=== PATIENT | male | born 1950 | race Hispanic/Latino ===

== ENCOUNTER 2019-02-03 22:44 | Emergency (ER) | payer OTHER ==
[2019-02-03] MEDS ORDERED: FOLIC ACID 5 MG/ML VIAL ONE (23:37)
[2019-02-03] MEDS ORDERED: MULTIVITAMINS 10 ML VIAL (INJ) IV ONE (23:37)
[2019-02-03] MEDS ORDERED: THIAMINE 200 MG/2 ML INJ ONE (23:37)
[2019-02-03] MEDS ORDERED: NA CHLORIDE 0.9% 1,000 ML ONE (23:38)
--- NOTE | 2019-02-04 03:40 | ER ---
Nurse's Notes [facility] Name: Jb Welch Age: 68 yrs Sex: Male : 1950 Arrival Date: 02/03/2019 Time: 22:47 Bed 16 Private MD: Fer Wellington E Diagnosis: Weakness;Near Syncope Presentation: 02/03 22:56 Presenting complaint: Patient states: while mowing generalized fatigue. pt denies LOC, ak1 stated he could not move his arms or legs at 1930. pt A\T\OX4 in triage with full ROM and steady gait. Transition of care: patient was not received from another setting of care. Onset of symptoms was February 03, 2019. Risk Assessment: Do you want to hurt yourself or someone else? Patient reports no desire to harm self or others. Initial Sepsis Screen: Does the patient meet any 2 criteria? No. Patient's initial sepsis screen is negative. Does the patient have a suspected source of infection? No. Patient's initial sepsis screen is negative. Care prior to arrival: None. 22:56 Method Of Arrival: Ambulatory ak1 22:56 Acuity: JOEY 3 ak1 Triage Assessment: 22:57 General: Appears in no apparent distress. Behavior is calm, cooperative. Neuro: Level ak1 of Consciousness is awake, alert, obeys commands, Oriented to person, place, time, situation, Biofuels Technology Manager are equal bilaterally Moves all extremities. Gait is steady, Speech is normal, Facial symmetry appears normal. Historical: - Allergies: 22:57 No Known Allergies; ak1 - PMHx: 22:57 Diabetes - NIDDM; Hyperlipidemia; Hypertension; ak1 - PSHx: 22:57 None; ak1 - Immunization history:: Adult Immunizations unknown. - Social history:: Smoking status: Patient/guardian denies using tobacco. - Ebola Screening: : No symptoms or risks identified at this time. - Family history:: not pertinent. - Hospitalizations: : No recent hospitalization is reported. Screenin:05 Abuse screen: Denies threats or abuse. Nutritional screening: No deficits noted. ea Tuberculosis screening: No symptoms or risk factors identified. Fall Risk None identified. Assessment: 23:04 General: Appears in no apparent distress. Behavior is calm, cooperative, appropriate ea for age. Pain: Denies pain. Neuro: Level of Consciousness is awake, alert, obeys commands, Oriented to person, place, time, situation. Neuro: Biofuels Technology Manager are equal bilaterally Moves all extremities. Gait is steady, Speech is normal, Facial symmetry appears normal. Cardiovascular: Patient's skin is warm and dry. Respiratory: Airway is patent Respiratory effort is even, unlabored, Respiratory pattern is regular, symmetrical. Derm: Skin is pink, warm \T\ dry. Musculoskeletal: Circulation, motion, and sensation intact. 23:20 Reassessment: Blood glucose 69, grape juice given to patient, pt tolerated well. ea 02/04 00:00 Reassessment: Patient and/or family updated on plan of care and expected duration. Pain ea level reassessed. Patient is alert, oriented x 3, equal unlabored respirations, skin warm/dry/pink. 00:01 Cardiovascular: Rhythm is sinus rhythm. ea 01:20 Reassessment: Patient and/or family updated on plan of care and expected duration. Pain ea level reassessed. Patient is alert, oriented x 3, equal unlabored respirations, skin warm/dry/pink. Awaiting for IV fluids to complete. 02:20 Reassessment: Patient and/or family updated on plan of care and expected duration. Pain ea level reassessed. Patient is alert, oriented x 3, equal unlabored respirations, skin warm/dry/pink. Discharge instruction given to patient, verbalized the understanding of instruction, no s/s of pain or discomfort noted at this time. Pt left ED ambulatory accompanied by family Patient states feeling better. Vital Signs: 02/03 22:55 BP 147 / 77; Pulse 80; Resp 18; Temp 98; Pulse Ox 98% on R/A; Weight 92.99 kg (R); ak1 Height 6 ft. 1 in. (185.42 cm) (R); Pain 0/10; 23:30 BP 124 / 78; Pulse 78; Resp 18; Pulse Ox 99% on R/A; ea 02/04 00:00 BP 114 / 71; Pulse 71; Resp 18; Pulse Ox 100% on R/A; ea 01:20 BP 122 / 82; Pulse 69; Resp 18; Pulse Ox 100% ; ea 02:00 BP 138 / 81; Pulse 80; Resp 18; Temp 98; Pulse Ox 99% on R/A; ea 02/03 22:55 Body Mass Index 27.05 (92.99 kg, 185.42 cm) ak1 ED Course: 02/03 22:47 Patient arrived in ED. do 22:48 Fer Wellington MD is Private Physician. do 22:55 Arm band placed on Patient placed in an exam room, on a stretcher, Patient notified of ak1 wait time. 22:57 Triage completed. ak1 23:04 Roxy Riley, RN is Primary Nurse. ea 23:06 Patient has correct armband on for positive identification. Bed in low position. Call ea light in reach. 23:07 Alan Nicolas MD is Attending Physician. rn 23:50 Inserted saline lock: 20 gauge in left antecubital area, using aseptic technique. Blood ea collected. 02/04 02:24 No provider procedures requiring assistance completed. IV discontinued, intact, ea bleeding controlled, No redness/swelling at site. Pressure dressing applied. Administered Medications: 02/03 23:59 Drug: Banana Bag - (NS 0.9% 1000 ml, foLIC Acid 1 mg, Thiamine 100 mg, Multivitamin 1 ea amp) Route: IV; Rate: calculated rate; Site: left antecubital; 02/04 02:28 Follow up: Response: No adverse reaction; IV Status: Completed infusion; IV Intake: ea 900ml Point of Care Testing: Blood Glucose: 02/03 23:13 Blood Glucose: 69 mg/dL; ea Ranges: Intake: 02/04 02:28 IV: 900ml; Total: 900ml. ea Outcome: 00:33 Discharge ordered by . rn 02:24 Discharged to home ambulatory, with family. ea 02:24 Condition: improved 02:24 Discharge instructions given to patient, Instructed on discharge instructions, follow up and referral plans. Demonstrated understanding of instructions, follow-up care. 02:28 Patient left the ED. ea Signatures: Alan Nicolas MD MD rn Krenek, Amber, RN RN ak1 Nery Navarro Elena, RN RN ea
--- NOTE | 2019-02-04 03:40 | EDPHYS ---
Physician Documentation [facility] Name: Jb Welch Age: 68 yrs Sex: Male : 1950 Arrival Date: 02/03/2019 Time: 22:47 Bed 16 Private MD: Fer Wellington E ED Physician Alan Nicolas HPI: 02/04 00:07 This 68 yrs old Male presents to ER via Ambulatory with complaints of Near rn Syncope, General Weakness. 00:07 The patient has experienced near-syncope. Onset: The symptoms/episode began/occurred rn today. Duration: The patient has had multiple episodes. Associated injury: The patient did not suffer any apparent associated injury. Current symptoms: Currently, the patient is not experiencing any symptoms. The patient has not experienced similar symptoms in the past. Reports was drinking beer, decided to cut grass, reports whole body got weak, unable to get off of ground or stand, reports lasted less than 1 minute, happened again after 10-15 minutes, then resolved, went inside to drink more beer and whiskey. No syncope. No assoc headache/focal neuro problem/chest pain/sob/abd pain/tingling. Reports feels totally fine right now and did not want to come. Denies drinking any water today.. Historical: - Allergies: 02/03 22:57 No Known Allergies; ak1 - PMHx: 22:57 Diabetes - NIDDM; Hyperlipidemia; Hypertension; ak1 - PSHx: 22:57 None; ak1 - Immunization history:: Adult Immunizations unknown. - Social history:: Smoking status: Patient/guardian denies using tobacco. - Ebola Screening: : No symptoms or risks identified at this time. - Family history:: not pertinent. - Hospitalizations: : No recent hospitalization is reported. ROS: 02/04 00:07 Constitutional: Negative for fever, chills, and weight loss, Eyes: Negative for injury, rn pain, redness, and discharge, Neck: Negative for injury, pain, and swelling, Cardiovascular: Negative for chest pain, palpitations, and edema, Respiratory: Negative for shortness of breath, cough, wheezing, and pleuritic chest pain, Abdomen/GI: Negative for abdominal pain, nausea, vomiting, diarrhea, and constipation, Back: Negative for injury and pain, MS/Extremity: Negative for injury and deformity, Skin: Negative for injury, rash, and discoloration, Neuro: Negative for headache, numbness, tingling, and seizure. Exam: 00:07 Constitutional: This is a well developed, well nourished patient who is awake, alert, rn and in no acute distress. Smiling and joking. Head/Face: Normocephalic, atraumatic. Eyes: Pupils equal round and reactive to light, extra-ocular motions intact. Lids and lashes normal. Conjunctiva and sclera are non-icteric and not injected. Cornea within normal limits. Periorbital areas with no swelling, redness, or edema. ENT: dry MM Neck: Trachea midline, no thyromegaly or masses palpated, and no cervical lymphadenopathy. Supple, full range of motion without nuchal rigidity, or vertebral point tenderness. No Meningismus. Cardiovascular: Regular rate and rhythm with a normal S1 and S2. No gallops, murmurs, or rubs. Normal PMI, no JVD. No pulse deficits. Respiratory: Lungs have equal breath sounds bilaterally, clear to auscultation and percussion. No rales, rhonchi or wheezes noted. No increased work of breathing, no retractions or nasal flaring. Abdomen/GI: Soft, non-tender, with normal bowel sounds. No distension or tympany. No guarding or rebound. No evidence of tenderness throughout. Skin: Warm, dry MS/ Extremity: Pulses equal, no cyanosis. Neurovascular intact. Full, normal range of motion. Equal circumference. Neuro: Awake and alert, GCS 15, oriented to person, place, time, and situation. Cranial nerves II-XII grossly intact. Motor strength 5/5 in all extremities. Sensory grossly intact. Cerebellar exam normal. Vital Signs: 02/03 22:55 BP 147 / 77; Pulse 80; Resp 18; Temp 98; Pulse Ox 98% on R/A; Weight 92.99 kg (R); ak1 Height 6 ft. 1 in. (185.42 cm) (R); Pain 0/10; 23:30 BP 124 / 78; Pulse 78; Resp 18; Pulse Ox 99% on R/A; ea 02/04 00:00 BP 114 / 71; Pulse 71; Resp 18; Pulse Ox 100% on R/A; ea 01:20 BP 122 / 82; Pulse 69; Resp 18; Pulse Ox 100% ; ea 02:00 BP 138 / 81; Pulse 80; Resp 18; Temp 98; Pulse Ox 99% on R/A; ea 02/03 22:55 Body Mass Index 27.05 (92.99 kg, 185.42 cm) ak1 MDM: 02/03 23:07 Patient medically screened. rn 02/04 00:32 Differential Diagnosis: cardiac arrhythmia, vasovagal episode, near syncope, ETOH rn effects, dehydration. Data reviewed: vital signs, nurses notes, lab test result(s), EKG, and as a result, I will continue to observe the patient. Counseling: I had a detailed discussion with the patient and/or guardian regarding: the historical points, exam findings, and any diagnostic results supporting the discharge/admit diagnosis, lab results, the need for outpatient follow up, to return to the emergency department if symptoms worsen or persist or if there are any questions or concerns that arise at home. Response to treatment: the patient's condition has returned to base line, the patient is now symptom free, and as a result, I will discharge patient. Special discussion: I discussed with the patient/guardian in detail that at this point there is no indication for admission to the hospital. It is understood, however, that if the symptoms persist or worsen the patient needs to return immediately for re-evaluation. 02/03 23:17 Order name: CBC with Diff rn 02/03 23:17 Order name: Basic Metabolic Panel rn 02/03 23:17 Order name: Troponin (emerg Dept Use Only) rn 02/03 23:17 Order name: ETOH Level rn 02/03 23:18 Order name: Magnesium rn 02/03 23:18 Order name: CBC with Automated Diff EDMS 02/03 23:17 Order name: IV Start; Complete Time: 23:59 rn 02/03 23:17 Order name: EKG; Complete Time: 23:18 rn 02/03 23:17 Order name: EKG - Nurse/Tech; Complete Time: 23:59 rn Administered Medications: 02/03 23:59 Drug: Banana Bag - (NS 0.9% 1000 ml, foLIC Acid 1 mg, Thiamine 100 mg, Multivitamin 1 ea amp) Route: IV; Rate: calculated rate; Site: left antecubital; 02/04 02:28 Follow up: Response: No adverse reaction; IV Status: Completed infusion; IV Intake: ea 900ml Point of Care Testing: Blood Glucose: 02/03 23:13 Blood Glucose: 69 mg/dL; ea Ranges: Critical Glucose Levels:Adult <50 mg/dl or >400 mg/dl <40 mg/dl or >180 mg/dl Disposition: 02/04/19 00:33 Discharged to Home. Impression: Weakness, Near Syncope. - Condition is Stable. - Discharge Instructions: Near-Syncope, Weakness. - Medication Reconciliation Form, Thank You Letter, Antibiotic Education, Prescription Opioid Use form. - Follow up: Private Physician; When: As needed; Reason: Recheck today's complaints, Re-evaluation by your physician. - Problem is new. - Symptoms have improved. Signatures: Dispatcher [employer] EDMS Alan Nicolas MD MD rn Krenek, Amber RN RN ak1 Roxy Riley RN RN ea Corrections: (The following items were deleted from the chart) 02/04 02:28 00:33 02/04/2019 00:33 Discharged to Home. Impression: Weakness; Near Syncope. ea Condition is Stable. Forms are Medication Reconciliation Form, Thank You Letter, Antibiotic Education, Prescription Opioid Use. Follow up: Private Physician; When: As needed; Reason: Recheck today's complaints, Re-evaluation by your physician. Problem is new. Symptoms have improved. rn
[2019-02-04 04:03] LABS: BUN Blood Urea Nitrogen 28 mg/dL (7-18); Bicarbonate 23 mmol/L (21-32); Glucose Level 82 mg/dL (74-106); Magnesium 2.2 mg/dL (1.8-2.4); Potassium 3.7 mmol/L (3.5-5.1); Sodium Level 145 mmol/L (136-145); Troponin (Emerg Dept Use Only) < 0.02 ng/mL (0.0-0.045)
[2019-02-04 04:07] LABS: Absolute Lymphocytes (CBC) 1.2 K/uL (0.7-4.9); Basophils % 0.8 % (0-1.3); Eosinophils % 0.9 % (0-4.4); Lymphocytes % 17.2 % (15.3-44.8); MPV 8.6 fL (7.6-11.3); Monocytes % 7.2 % (3.3-12.3); RBC Red Blood Cell Count 4.22 M/uL (4.33-5.43)
--- NOTE | 2019-02-04 09:56 | EKG ---
Test Date: 2019-02-03 Test Time: 23:31:28 Sales Rep: EDNA MEASUREMENT RESULTS: Intervals: Rate: 70 DC: 226 QRSD: 114 QT: 414 QTc: 447 [place]: P: 51 DC: 226 QRS: -27 T: 42 INTERPRETIVE STATEMENTS: Sinus rhythm with 1st degree AV block Otherwise normal ECG Compared to ECG 06/19/2016 13:48:15 First degree AV block now present Electronically Signed On 02-04-19 09:55:06 CDT by Reza Lopez
== END 2019-02-04 02:28 | disposition home or self-care (01) ==
LOC: ER 22:44
DX: R53.1 Weakness (principal); I10 Essential (primary) hypertension
CPT/HCPCS: 96365; 93005; 85025; 80048; 36415; 80320; 83735; 82962; 84484; 99284; 96366; J3411; J7030

== ENCOUNTER 2020-01-25 07:45 | Day surgery (SDC) | payer OTHER ==
[2020-01-22 12:48] LABS: Basophils % 0.6 % (0-1.3); Hematocrit 44.3 % (39.6-49.0); Lymphocytes % 18.4 % (15.3-44.8); MPV 8.6 fL (7.6-11.3); RBC Red Blood Cell Count 4.45 M/uL (4.33-5.43)
[2020-01-22 12:57] LABS: Protime INR 0.94
[2020-01-22 13:00] LABS: Potassium 4.9 mmol/L (3.5-5.1)
--- NOTE | 2020-01-22 13:14 | RAD REPORT ---
EXAM DESCRIPTION: David Fisher And Migel (2 Views)01/22/2020 12:40 pm CLINICAL HISTORY: Preop for cardiac catheterization. Hypertension COMPARISON: 2016 FINDINGS: The lungs appear clear of acute infiltrate. The heart is appears borderline enlarged IMPRESSION: No acute abnormalities displayed
[2020-01-25] MEDS ORDERED: NA CHLORIDE 0.9% 500 ML ONE (08:05)
[2020-01-25] MEDS ORDERED: MIDAZOLAM HCL 2 MG/2 ML INJ ONE ×2 (09:18→09:54)
[2020-01-25] MEDS ORDERED: HEPARIN 5000 UNIT/ML 1 ML VIAL ONE ×2 (09:18→09:19)
[2020-01-25] MEDS ORDERED: ATROPINE SULF 1 MG/10 ML SYR IV ONE (09:19)
[2020-01-25] MEDS ORDERED: NICARDIPINE HCL 25 MG/10 ML IV ONE (09:19)
[2020-01-25] MEDS ORDERED: FENTANYL CITR 100 MCG/2 ML ONE (09:19)
[2020-01-25] MEDS ORDERED: HEPA 1000U/500MLS 2,000 UNIT/1,000 ML BAG IV ONE (09:21)
[2020-01-25] MEDS ORDERED: CLOPIDOGREL 75 MG TABLET ONE (10:30)
[2020-01-25] MEDS ORDERED: ONDANSETRON 4 MG/2 ML VIAL IV PRN (12:14)
[2020-01-25] MEDS ORDERED: ZOLPIDEM TARTRATE 5 MG TABLET PO PRN (12:14)
[2020-01-25] MEDS: NA CHLORIDE 0.9% 1,000 ML IV SCH (13:00)
[2020-01-25] MEDS ORDERED: ACETAMINOPHEN 325 MG TABLET PO PRN (13:00)
[2020-01-25] MEDS ORDERED: NITROGLYCERIN 0.4 MG/TAB SL PRN (13:00)
[2020-01-25 13:40] VITALS: BMI 26.7
[2020-01-25] MEDS: GLIMEPIRIDE 2 MG TABLET PO SCH (16:31)
[2020-01-25] MEDS ORDERED: ATORVASTATIN 40 MG TAB PO SCH (21:00)
--- NOTE | 2020-01-25 22:29 | OP ---
Date of Procedure: 01/25/2020 Surgeon: KENNY NAVARRO Procedure Performed: 1.Selective coronary angiogram. 2.Balloon angioplasty of severe proximal to mid diagonal D1 branch stenosis. 3.Left heart catheterization. Indication: Unstable angina with positive stress test. Access: Right radial artery 6-Malaysian closed with TR band. Anesthesia: Total sedation time was 45 minutes. Description Of Procedure: Patient was brought into the cardiac catheterization laboratory, prepped a nd draped in usual sterile fashion. Then, we took a pediatric micropuncture kit and obtained right r adial access, inserted a 6-Malaysian slender sheath and then took the 5-Malaysian tiger catheter into the a ortic root and we engaged the left main coronary artery and right coronary artery, took standard view s and then decided to intervene on the diagonal branch 1 due to the symptoms and significant stenosis that correlates with positive stress test of lateral ischemia. Intervention Details: Systemic heparin was given to assure ACT level above 250 throughout the proced ure and we took a EBU 3.5, engaged the left main and we took a short run-through wire across the sten osis of the D1 branch and we took a 2.0 x 12 mm Compliant balloon across the stenotic area and did ba lloon angioplasty. The lesion length was 20 mm with KANG-3 flow and stenosis was about 90%. Post ba lloon angioplasty, KANG-3 flow was still present and residual stenosis was about 10% with good flow. Decided to stop the procedure at this point and no stent was placed as the vessel size is relatively small. Then, we took wires and catheter out and we closed the access site with a TR band with good hemostasis. Findings: 1.Left main was large and normal. 2.LAD is diffuse mid 30% stenosis and gives rise to the D1 branch that has a proximal to mid 90% david nosis, status post a successful balloon angioplasty with estimated residual of 10% stenosis. 3.Left circumflex has a mid 30% to 40% stenosis and proximal OM1 has about 30% stenosis. 4.Patent LAD and LCX stents. 5.RCA diffuse 30% to 40% stenosis in the PDA distally. 6.The LVEDP of 50 mmHg. The [place] catheter was advanced over a J-wire into the LV across aortic skye ve and recorded pressure in the LV and then upon pullback, there was no difference in pressure gradie nt. Impression: 1.Significant coronary artery disease involving D1 stenosis likely responsible for the symptoms and the reversible ischemia on the stress test that is lateral in location, status post balloon angioplas ty as above with good results. 2.Mild nonobstructive coronary artery disease elsewhere as above. Recommendations: 1.Aspirin 81 mg for life, Plavix 300 mg was given today in the labor union business representative, to continue 75 mg daily and we will start on high dose statin, Lipitor 40 mg or higher as he tolerates it. 2.Aggressive cardiac risk factor modification. 3.Follow up in the office in about 4 weeks post discharge. /LUIZA Voice ID: [id number] Report ID: [id number]
[2020-01-26] MEDS: NA CHLORIDE 0.9% 1,000 ML IV SCH (02:49)
[2020-01-26 05:25] LABS: Absolute Lymphocytes (CBC) 1.3 K/uL (0.7-4.9); Basophils % 0.9 % (0-1.3); Hematocrit 42.7 % (39.6-49.0); Lymphocytes % 20.6 % (15.3-44.8); MPV 8.3 fL (7.6-11.3); RBC Red Blood Cell Count 4.25 M/uL (4.33-5.43)
[2020-01-26 07:57] VITALS: O2SAT 96
[2020-01-26] MEDS: GLIMEPIRIDE 2 MG TABLET PO SCH (07:58)
[2020-01-26 08:33] VITALS: BP 155/72
[2020-01-26] MEDS ORDERED: ENALAPRIL 10 MG TAB PO SCH (09:00)
[2020-01-26] MEDS ORDERED: CLOPIDOGREL 75 MG TABLET PO SCH (09:00)
[2020-01-26] MEDS ORDERED: ASPIRIN 81 MG CHEWABLE TABLET PO SCH (09:00)
[2020-01-26 09:09] VITALS: TEMP 97.1
--- NOTE | 2020-01-27 12:52 | PN ---
Date of Progress Note: 01/26/2020 Mr. Frausto was admitted as an outpatient to Dr. Lux's service yesterday on 01/25/2020. He underwent a heart catheterization and a coronary intervention with angioplasty. No stent. Patient tolerated the procedure well. I believe his angioplasty was done in the diagonal. Overnight, he has no compla int. His vital signs were stable. He was afebrile. He is in sinus rhythm. His right wrist cathete rization entry site is normal with good pulses and no hematoma. We will send him home today on his h ome medications plus Plavix 75 mg daily 1 p.o. He will see us in the office in the next 2 weeks. OTTONIEL/LUIZA Voice ID: [id number] Report ID: [id number]
== END 2020-01-26 09:15 | disposition home or self-care (01) ==
LOC: CCL 07:45 → 2ND 11:41 → CCL 01-26 09:15
PROVIDERS: ATTEND Internal Medicine
DX: I25.110 Atherosclerotic heart disease of native coronary artery with unstable angina pectoris (principal); Z11.59 Encounter for screening for other viral diseases; I10 Essential (primary) hypertension; E11.9 Type 2 diabetes mellitus without complications; E78.5 Hyperlipidemia, unspecified; Z95.5 Presence of coronary angioplasty implant and graft
CPT/HCPCS: 85025 ×2; 80048 ×2; 36415 ×2; 85610; 80061; 82947 ×5; 85347; 85730; 71046; 92920; 93458; U0002; C1893; C1725; J1644 ×2; J2250 ×2; J3010; J7040; J7030 ×2

== ENCOUNTER 2024-09-01 11:22 | Day surgery (SDC) | payer OTHER ==
--- NOTE | 2024-08-17 15:30 | RAD REPORT ---
EXAM: Chest Pa And Lat (2 Views) HISTORY: 74 years Male Pre-op pending heart cath COMPARISON: 01/22/2020 FINDINGS: LUNGS/PLEURA: The lungs are clear. No pleural effusions or pneumothorax. No pulmonary edema. MEDIASTINUM: The mediastinal silhouette is within normal limits. CARDIAC: The cardiac silhouette is within normal limits. UPPER ABDOMEN: No significant abnormality. BONES: No acute abnormality. LINES/TUBES/OTHER: N/A IMPRESSION: No evidence of acute cardiopulmonary disease.
[2024-08-17 15:38] LABS: Absolute Eosinophils 0.1 K/uL (0-0.5); Absolute Lymphocytes (CBC) 1.2 K/uL (0.7-4.9); Absolute Monocytes 0.6 K/uL (0.1-1.3); Absolute Neutrophil 4.1 K/uL (1.8-8.0); Basophils % 0.5 % (0-1.3); Eosinophils % 2.2 % (0-4.4); Hematocrit 41.4 % (39.6-49.0); Hemoglobin 13.7 g/dL (13.6-17.9); Lymphocytes % 20.3 % (15.3-44.8); MCH 32.3 pg (27.0-35.0); MCHC 33.2 g/dL (32.0-36.0); MCV 97.2 fL (80-100); MPV 7.8 fL (7.6-11.3); Monocytes % 9.9 % (3.3-12.3); Neutrophils % 67.1 % (41.7-73.7); Nucleated Red Blood Cells % 0.1 % (0-0); Platelets 214 thou/uL (152-406); RBC Red Blood Cell Count 4.26 M/uL (4.33-5.43); Red Cell Distribution Width 14.8 % (12.1-15.2)
[2024-08-17 15:49] LABS: PTT, Activated Partial Thromb 32.2 SECONDS (24.3-36.9); Protime INR 1.14
[2024-08-17 15:53] LABS: Anion Gap 10.4 mEq/L (5.0-15.0); Potassium 4.4 mEq/L (3.5-5.1)
--- NOTE | 2024-08-20 13:02 | EKG ---
Test Date: 2024-08-17 Test Time: 15:52:22 Physicians Assistant: JENNIFER MEASUREMENT RESULTS: Intervals: Rate: 56 NM: 246 QRSD: 104 QT: 410 QTc: 395 [place]: P: 86 NM: 246 QRS: 78 T: 66 INTERPRETIVE STATEMENTS: Sinus bradycardia with 1st degree AV block Nonspecific ST abnormality Abnormal ECG Compared to ECG 02/03/2019 23:31:28 ST (T wave) deviation now present Sinus rhythm no longer present Electronically Signed On 08-20-24 12:59:07 LOSS CONTROL ENGINEER by Dallas Singh
[2024-09-01] MEDS ORDERED: HEPA 1000U/500MLS 2,000 UNIT/1,000 ML BAG IV ONE (13:05)
[2024-09-01] MEDS ORDERED: LIDOCAINE 1% 20 ML MDV ONE (13:05)
[2024-09-01] MEDS ORDERED: HEPARIN 10,000 UNIT/10 ML VIAL IV ONE (13:06)
[2024-09-01] MEDS ORDERED: ATROPINE SULF 1 MG/10 ML SYR IV ONE (13:07)
[2024-09-01] MEDS ORDERED: MIDAZOLAM HCL 2 MG/2 ML INJ ONE (13:07)
[2024-09-01] MEDS ORDERED: HEPARIN 5000 UNIT/ML 1 ML VIAL ONE (13:07)
[2024-09-01] MEDS ORDERED: VERAPAMIL HCL 10 MG/4 ML VIAL IV ONE (13:07)
[2024-09-01] MEDS ORDERED: CLOPIDOGREL 75 MG TABLET ONE (13:08)
[2024-09-01] MEDS ORDERED: FENTANYL CITR 100 MCG/2 ML ONE (13:08)
[2024-09-01] MEDS ORDERED: TICAGRELOR 90 MG TABLET PO ONE (13:08)
[2024-09-01] MEDS ORDERED: ASPIRIN 325 MG TAB ONE (13:09)
[2024-09-01] MEDS ORDERED: HYDRALAZINE HCL 20 MG/ML VIAL ONE (14:15)
[2024-09-01] MEDS: NA CHLORIDE 0.9% 500 ML ONE (14:43)
--- NOTE | 2024-09-01 14:59 | OP ---
Date of Procedure: 09/01/2024 Surgeon: KENNY NAVARRO Procedures Performed: 1. Selective coronary angiogram. 2. Left heart catheterization. 3. PCI of severe mid diagonal 1 branch 99% stenosis, I used 2.5 x 16 mm Synergy drug-eluting stent. Indication: Chest pain with abnormal stress test. Access: Right radial artery 6-Polish closed with TR band. Complications: None. Bleeding: Less than 50 mL. Anesthesia: Total sedation time was none. We did not give any sedation during this case. Description Of Procedure: After risks, benefits, and alternatives were explained, the patient agreed to procedure and signed informed consent. The patient was brought into cardiac catheterization [facility], prepped and draped in sterile fashion. Then, I accessed right radial artery using pediatric micropuncture kit, placed 6-Polish slender sheath and took 5-Polish Mellette 4.0 catheter over a J-wire into the aortic root, engaged the left main and then right coronary artery, took standard views and t he catheter was pushed over the wire into the LV, measured the LVEDP. Pullback did not record any gr adient. Then, exchanged for a 6-Polish EBU3.5 guide over a J-wire, engaged left main, gave systemic heparin to assure ACT level above 250 throughout the procedure and loaded with 180 mg of Brilinta, 32 5 mg aspirin, and took a Runthrough wire into the left main, LAD, and the diagonal 1. Lesion was pre -dilated successfully using 2.5 balloon and then placed 2.5 x 16 mm Synergy drug-eluting stent across the area of stenosis. Excellent expansion and removed the wire. Final angiogram was satisfactory. Removed the guide and the sheath, placed TR band with good hemostasis. Used close to 120 cc of cont rast and decided to stage the RCA to be done next week. The patient was sent to Recovery in stable c ondition after removing the sheath, and TR band was placed. Findings: 1. Left main is normal. 2. LAD; proximal segment is normal. Mid segment is long, diffuse 40% stenosis and then there is a fo ignacio 50% stenosis in the mid segment as well, then distally there is widely patent stent. 3. D1 or diagonal branch 1 has mid 99% stenosis, status post successful PCI as above and ostially, th ere is about 60% stenosis, which was left for medical management to avoid extending this into the lef t to the LAD. 4. Left circumflex; proximal 50% and all the way distal, it is 70%. It is a codominant circulation. 5. RCA; it is a codominant circulation with proximal 80% to 90% stenosis, distal 50% stenosis, and th e PDA has diffuse 50% stenosis. 6. LVEDP is normal at 9 mmHg. Conclusion: 1. Severe diagonal 1 stenosis 99%, status post successful PCI as above. 2. Severe proximal RCA stenosis, which will be staged to be done next week due to the contrast load. 3. Moderate disease elsewhere and patent LAD stent. Plan: 1. Aspirin, Brilinta, high-dose statin. 2. Staged PCI of proximal RCA to be done next week. /LUIZA Voice ID: [id number] Report ID: [id number]
[2024-09-01 17:57] VITALS: TEMP 98.2
[2024-09-01 19:38] VITALS: O2SAT 100
[2024-09-01 20:03] VITALS: BP 144/75
== END 2024-09-01 20:06 | disposition home or self-care (01) ==
LOC: CCL 11:22
PROVIDERS: ATTEND Internal Medicine
DX: I25.110 Atherosclerotic heart disease of native coronary artery with unstable angina pectoris (principal); I10 Essential (primary) hypertension; E78.5 Hyperlipidemia, unspecified; E11.9 Type 2 diabetes mellitus without complications; Z95.5 Presence of coronary angioplasty implant and graft; Z87.891 Personal history of nicotine dependence; Z79.84 Long term (current) use of oral hypoglycemic drugs; Z79.899 Other long term (current) drug therapy; Z88.8 Allergy status to other drugs, medicaments and biological substances; Z91.09 Other allergy status, other than to drugs and biological substances
CPT/HCPCS: 36415; 71046; 76937; 80048; 82947; 85025; 85347; 85610; 85730; 93005; 93458; C1725; C1893; C9600; J0360; J0461; J1644; J2003; J2250; J3010; J7040; Q9967

== ENCOUNTER 2024-09-10 10:46 | Day surgery (SDC) | payer OTHER ==
[2024-09-08 14:46] LABS: Absolute Eosinophils 0.2 K/uL (0-0.5); Absolute Monocytes 0.5 K/uL (0.1-1.3); Absolute Neutrophil 3.3 K/uL (1.8-8.0); Basophils % 0.7 % (0-1.3); Eosinophils % 3.7 % (0-4.4); Hematocrit 38.7 % (39.6-49.0); Hemoglobin 13.3 g/dL (13.6-17.9); Lymphocytes % 19.9 % (15.3-44.8); MCHC 34.5 g/dL (32.0-36.0); MCV 95.7 fL (80-100); MPV 8.1 fL (7.6-11.3); Monocytes % 9.3 % (3.3-12.3); Neutrophils % 66.4 % (41.7-73.7); Platelets 205 thou/uL (152-406); RBC Red Blood Cell Count 4.04 M/uL (4.33-5.43); Red Cell Distribution Width 14.3 % (12.1-15.2)
[2024-09-08 14:50] LABS: PT Prothrombin Time 11.9 SECONDS (9.4-12.5); Protime INR 1.13
[2024-09-08 14:54] LABS: Anion Gap 9.7 mEq/L (5.0-15.0); Potassium 4.7 mEq/L (3.5-5.1)
--- NOTE | 2024-09-09 11:45 | EKG ---
Test Date: 2024-09-08 Test Time: 15:23:49 Marketing Program Manager: IGLESIA MEASUREMENT RESULTS: Intervals: Rate: 53 NM: 258 QRSD: 108 QT: 428 QTc: 401 [place]: P: 73 NM: 258 QRS: 86 T: 84 INTERPRETIVE STATEMENTS: Sinus bradycardia with 1st degree AV block Otherwise normal ECG Compared to ECG 08/17/2024 15:52:22 ST (T wave) deviation no longer present Electronically Signed On 09-09-24 11:43:56 PROCUREMENT INTERN by Dallas Singh
[2024-09-10] MEDS ORDERED: NA CHLORIDE 0.9% 500 ML ONE (10:53)
[2024-09-10] MEDS ORDERED: LIDOCAINE 1% 20 ML MDV ONE (11:43)
[2024-09-10] MEDS ORDERED: HEPA 1000U/500MLS 2,000 UNIT/1,000 ML BAG IV ONE (11:43)
[2024-09-10] MEDS ORDERED: VERAPAMIL HCL 10 MG/4 ML VIAL IV ONE (11:43)
[2024-09-10] MEDS ORDERED: HEPARIN 10,000 UNIT/10 ML VIAL IV ONE (11:43)
[2024-09-10] MEDS ORDERED: MIDAZOLAM HCL 2 MG/2 ML INJ ONE (11:44)
[2024-09-10] MEDS ORDERED: TICAGRELOR 90 MG TABLET PO ONE (11:44)
[2024-09-10] MEDS ORDERED: CLOPIDOGREL 75 MG TABLET ONE (11:44)
[2024-09-10] MEDS ORDERED: HEPARIN 5000 UNIT/ML 1 ML VIAL ONE (11:44)
[2024-09-10] MEDS ORDERED: ATROPINE SULF 1 MG/10 ML SYR IV ONE (11:44)
[2024-09-10] MEDS ORDERED: FENTANYL CITR 100 MCG/2 ML ONE (11:45)
[2024-09-10] MEDS ORDERED: ASPIRIN 325 MG TAB ONE (11:45)
[2024-09-10] MEDS ORDERED: FLUMAZENIL 0.1 MG/ML (5 mL VIAL) IV ONE (12:00)
[2024-09-10] MEDS ORDERED: NALOXONE 0.4 MG/ML VIAL ONE (12:00)
[2024-09-10] MEDS ORDERED: Phenylephrine HCl 10 MG/ML 1 ML VIAL ONE (12:01)
[2024-09-10 14:32] VITALS: TEMP 97.4
[2024-09-10 16:02] VITALS: O2SAT 99
[2024-09-10 16:17] VITALS: BP 125/67
--- NOTE | 2024-09-10 18:51 | OP ---
Date of Procedure: 09/10/2024 Surgeon: KENNY NAVARRO Procedures Performed: 1. Selective right coronary angiogram. 2. PCI of proximal severe RCA stenosis, used 2.75 x 20 mm Synergy drug-eluting stent. Indications: Unstable angina and known coronary artery disease. Access: Right radial artery 6-Dutch, closed with TR band. Complications: None. Bleeding: Less than 50 mL. Anesthesia: Total sedation time was 45 minutes, used fentanyl, Versed. Description Of Procedure: After risks, benefits, and alternatives were explained, the patient agreed to procedure and signed informed consent. The patient was brought into cardiac catheterization [facility], prepped and draped in usual sterile fashion. Then, I accessed right radial artery using pedi atric micropuncture kit and ultrasound guidance, placed a 6-Dutch Slender sheath and took a 6-Dutch JR4 guide with side holes over J-wire into the aortic root, engaged the RCA and took standard views and then took short run-through wire into the RCA, placed it distally, gave systemic heparin to assur e ACT level above 250 throughout the procedure. The patient is already on Brilinta and aspirin, took a dose this morning of both. Then, using a 2.5 and then a 3.0 Compliant balloon, lesion pre-dilated and expanded very well and then placed a 2.75 x 20 mm Synergy drug-eluting stent with excellent expa nsion, took the wire out. Final angiogram was satisfactory, removed the guide and the sheath, and TR band was used for closure with good hemostasis. Findings: Proximal RCA has 90% stenosis, status post successful PCI as above and distal RCA has 50% stenosis and the PDA has diffuse 50% stenosis. Conclusion: Severe proximal RCA stenosis, status post successful PCI as above. Plan: Aspirin, Brilinta, high-dose statin, and follow up with me in the office in 1 week. SR/MODL Voice ID: [id number] Report ID: [id number]
== END 2024-09-10 16:35 | disposition home or self-care (01) ==
LOC: CCL 10:46
PROVIDERS: ATTEND Internal Medicine
DX: I25.110 Atherosclerotic heart disease of native coronary artery with unstable angina pectoris (principal); I65.29 Occlusion and stenosis of unspecified carotid artery; I10 Essential (primary) hypertension; E78.5 Hyperlipidemia, unspecified; E11.9 Type 2 diabetes mellitus without complications; Z95.5 Presence of coronary angioplasty implant and graft; Z87.891 Personal history of nicotine dependence; Z79.82 Long term (current) use of aspirin; Z79.899 Other long term (current) drug therapy; Z88.8 Allergy status to other drugs, medicaments and biological substances; Z91.09 Other allergy status, other than to drugs and biological substances
CPT/HCPCS: 93005; 85025; 80048; 36415; 85610; 82947; 85730; 93454; 76937; C1893; Q9966; C1725; C9600; J1644; J2003; J2250; J3010; J7040; 99152; 99153; J0461; J2310; J2371